=== PATIENT | female | born 1985 | race Caucasian/White ===

== ENCOUNTER 2016-07-21 03:14 | Inpatient (IN) | payer OTHER ==
[~2016-07-21] VITALS: Ht 165.1 cm; Wt 67.7 kg
[~2016-07-21 03:14] MED LIST: PRENTAB26 PO; SYN150 PO; SYN200 PO
[2016-07-25] MEDS ORDERED: LEVO100T PO (09:18)
[2016-07-25 09:21] VITALS: Ht 165.1 cm; Wt 67.7 kg
[2016-07-25] MEDS ORDERED: LACTATED RINGER'S 1000ML 500 ML IV PRN ×2 (09:40→22:47)
[2016-07-25] MEDS ORDERED: LACTATED RINGER'S 1000ML 1,000 ML IV PRN (09:40)
[2016-07-25] MEDS ORDERED: OXYTOCIN 30 UNITS/500ML NSS IV PRN (09:45)
--- NOTE | 2016-07-25 10:02 | HISTORY & PHYSICAL EXAMINATION ---
DATE OF ADMISSION: 07/25/2016 CHIEF COMPLAINT: Scheduled induction of labor. HISTORY OF PRESENT ILLNESS: The patient is a 31-year-old G2, P 1-0-0-1, at 40 weeks and 4 days of gestation, who is presenting today for induction of labor for postdates. She has no complaints, no contractions, leakage of fluid or vaginal bleeding. She reports good movements. She denies fever, chills, chest pain, shortness of breath, headache, nausea or vomiting. Her has been uncomplicated except history of hypothyroidism. PAST MEDICAL HISTORY: As above. PAST SURGICAL HISTORY: Lymph node biopsy of groin benign. MEDICATIONS: vitamins and Levoxyl 100 mcg daily. ALLERGIES: No known drug allergies. SOCIAL HISTORY: The patient is , lives with her and her daughter. She denies smoking, alcohol or drug use. GYNECOLOGIC HISTORY: The patient denies any history of STDs including Chlamydia, gonorrhea or herpes. OBSTETRICAL HISTORY: The patient delivered in 2011 full term, spontaneous vaginal delivery of a female . LABORATORIES: Her blood type is O positive, antibody screen negative. GC and chlamydia cultures were negative. Rubella titer positive, RPR nonreactive, hepatitis B surface antigen negative. H\T\H was 13/38, platelets 186. Her first trimester screen testing was negative. Second trimester MSAFP was negative. One-hour Glucola was 95 mg/dL. GBS was negative on 06/01/2016. PHYSICAL EXAMINATION: GENERAL: The patient is alert, oriented x3, not in acute distress. CARDIOVASCULAR: S1, S2, RRR. LUNGS: Clear to auscultation bilaterally. ABDOMEN: Soft, nontender, gravid. Gregg, 8 pounds. EXTREMITIES: Nontender, no edema. PELVIC: Cervix is 3-4 cm dilated, 50%, -3 with vertex presentation. heart rate 140s, category 1. [place], mild contractions every 2-5 minutes. VITAL SIGNS: Blood pressure was 116/59, respiration 20, pulse 83 and temperature 98.5. ASSESSMENT AND PLAN: The patient is a 31-year-old G2, P 1-0-0-1, at 40 weeks and 4 days of gestation, presenting for scheduled induction of labor at term. Vital signs stable, afebrile. No medical problems. GBS negative. heart rate reassuring. Plan is admit her, start IV fluids, IV Pitocin for augmentation and induction of labor. She understands the risks and benefits, and she agrees with the plan.
[2016-07-25 10:26] LABS: HEMATOCRIT 34.4 % (37-47); MEAN CELL VOLUME 92.2 fL (80-100); MEAN CORPUSCULAR HEMOGLOBIN 31.4 pg (25-34); MEAN PLATELET VOLUME 11.1 fL (7.4-10.4); PLATELET COUNT 121 K/uL (130-400); RED BLOOD COUNT 3.73 M/uL (4.2-5.4); WHITE BLOOD COUNT 4.72 K/uL (4.8-10.8)
[2016-07-25] MEDS: LACTATED RINGER'S 1000ML 1,000 ML IV SCH ×3 (10:40→22:18)
[2016-07-25] MEDS ORDERED: BUPIVACAINE 0.25% 30 ML VIAL ONE (21:38)
[2016-07-25] MEDS ORDERED: FENTANYL 2MCG/ML ROPIV 1.25MG/ML 100ML BAG EPI ONE (21:38)
[2016-07-25] MEDS ORDERED: EpHEDrine SULFATE INJ 50 MG/ML AMP ONE (21:38)
[2016-07-25] MEDS ORDERED: FENTANYL CITRATE INJ 50 MCG/1 ML 2 ML VIAL ONE (21:39)
[2016-07-25] MEDS ORDERED: NALOXONE HCL INJ 1 MG in SODIUM CHLORIDE 0.9% 1000ML 1,000 ML IV PRN (22:47)
[2016-07-25] MEDS ORDERED: ONDANSETRON INJ 2 MG/ML 2 ML VIAL IV PRN (23:00)
[2016-07-25] MEDS ORDERED: NALOXONE HCL INJ 0.4 MG/1 ML VIAL/CARP IV PRN (23:00)
[2016-07-25] MEDS ORDERED: DiphenhydrAMINE HCL 50 MG/ML VIAL IV PRN (23:00)
[2016-07-25] MEDS ORDERED: FENTANYL 2MCG/ML ROPIV 1.25MG/ML 100ML BAG EPI PRN (23:00)
[2016-07-25] MEDS ORDERED: NALBUPHINE HCL INJ 10 MG/ML AMP IV PRN (23:00)
[2016-07-25] MEDS ORDERED: EpHEDrine SULFATE INJ 50 MG/ML AMP IV PRN (23:00)
[2016-07-26] MEDS: LACTATED RINGER'S 1000ML 1,000 ML IV SCH (00:55)
[2016-07-26] MEDS ORDERED: CALCIUM CARBONATE 500 MG CHEWABLE PO STA (02:24)
[2016-07-26] MEDS ORDERED: NURSING VERBAL MED ORDER ONE (02:30)
[2016-07-26] MEDS ORDERED: LIDOCAINE HCL 2% JELLY 30 ML TUBE EXT ONE (06:29)
[2016-07-26] MEDS ORDERED: ACETAMINOPHEN 325 MG TAB PO PRN (07:30)
[2016-07-26] MEDS ORDERED: HYDROCORTISONE ACETATE 25 MG SUPP PR PRN (07:30)
[2016-07-26] MEDS ORDERED: ACETAMINOPHEN/CODEINE 300/30MG TAB PO PRN ×2 (07:30)
[2016-07-26] MEDS ORDERED: BENZOCAINE 20% AER SPR 82.5 GM CAN EXT PRN (07:30)
[2016-07-26] MEDS ORDERED: LANOLIN OINT EXT PRN ×2 (07:30)
[2016-07-26] MEDS ORDERED: SUPERCREAM 0.870 % 15GM JAR EXT PRN (07:30)
[2016-07-26] MEDS ORDERED: OXYTOCIN 30 UNITS/500ML NSS IV PRN (07:30)
[2016-07-26] MEDS ORDERED: OXYCODONE/ACETAMINOPHEN 5-325 TAB PO PRN (07:30)
--- NOTE | 2016-07-26 07:48 | DELIVERY SUMMARY ---
DATE OF OPERATION: 07/25/2016 The patient delivered a live infant male in occiput anterior presentation. There was a tight nuchal cord which was cut and reduced. Infant delivered with right hand compound presentation. was delivered and was placed on mother's abdomen. Placenta spontaneously delivered. Inspection of the perineum showed a first degree midline laceration as well as periurethral tear, both were repaired with 3-0 Vicryl. Inspection of the rectum post repair showed good sphincter tone. A red rubber catheter was placed in the bladder after the repair of the periurethral tear. Urine was clear. Estimated blood loss was 400 mL. All instruments were removed from the vagina and accounted for x2 including sponges and needles. The baby's weight and Apgars in the pediatric records. Mother and baby are doing well in recovery. I attest to the content of the Intraoperative Record and any orders documented therein. Any exceptions are noted below. MTDD
[2016-07-26] MEDS: DOCUSATE SODIUM 100 MG CAP PO SCH ×2 (08:19→20:16)
[2016-07-26] MEDS: PRENATAL VITAMIN TAB PO SCH (08:19)
[2016-07-26] MEDS: FERROUS SULFATE 325 MG TAB PO SCH (08:19)
[2016-07-26] MEDS: LEVOTHYROXINE 100 MCG TAB PO SCH ×2 (08:48→08:58)
--- NOTE | 2016-07-26 09:13 | Anesthesia Procedure Note ---
Anesthesia Epidural Removal Nt Date & Time Jul 26, 2016 at 09:12 Vital Signs Pain Intensity: 0.0 Notes Mental Status: alert / awake / arousable, participated in evaluation Nausea / Vomiting: adequately controlled Pain: adequately controlled Airway Patency, RR, SpO2: stable & adequate BP & HR: stable & adequate Hydration State: stable & adequate Neuraxial Anesthesia: was administered Anesthetic Complications: no major complications apparent, pt satisfied with anesthetic care Epidural: removed without complications, with tip intact
[2016-07-26 10:00] VITALS: BP 102/57; PULSE 65; TEMP 36.7
[2016-07-26] MEDS: IBUPROFEN 600 MG TAB PO PRN ×2 (15:18→22:42)
[2016-07-26 15:45] VITALS: BP 107/64; PULSE 60; TEMP 36.8
[2016-07-26 20:20] VITALS: BP 100/57; PULSE 59; TEMP 36.5
[2016-07-26 23:35] VITALS: BP 100/72; PULSE 70; TEMP 36.6
[2016-07-27 04:03] VITALS: BP 99/61; PULSE 64; TEMP 36.4
[2016-07-27 06:27] LABS: HEMATOCRIT 34.4 % (37-47)
[2016-07-27] MEDS: LEVOTHYROXINE 100 MCG TAB PO SCH (07:07)
[2016-07-27] MEDS: PRENATAL VITAMIN TAB PO SCH (08:22)
[2016-07-27] MEDS: FERROUS SULFATE 325 MG TAB PO SCH (08:22)
[2016-07-27] MEDS: DOCUSATE SODIUM 100 MG CAP PO SCH (08:22)
[2016-07-27 08:25] VITALS: BP 96/56; PULSE 66; TEMP 36.6
--- NOTE | 2016-07-27 09:23 | OB/GYN Progress Note ---
MANAGER OF TRANSPORTATION Progress Note Date of Service Jul 27, 2016. Subjective conversation w/ patient, physical exam Ambulation: ambulating normally Voiding: no voiding problems Passing Gas: Yes Diet Tolerance: Regular Diet Lochia: Moderate Feeding Type: Breast Feeding Review of Systems Constitutional: No chills, No fatigue, No fever, No problem reported, No sweats , No weakness, No weight loss Respiratory: No cough, No dyspnea at rest, No dyspnea on exertion, No hemoptysis, No problem reported, No shortness of breath, No sputum, No wheezing Cardiac: No PND, No chest pain, No claudication, No edema, No orthopnea, No palpitations, No problem reported Breast: No breast lump, No breast pain, No change in shape, No nipple discharge , No problem reported, No see HPI Abdomen: No GI bleeding, No constipation, No diarrhea, No nausea, No pain, No problem reported, No vomiting Female : No abnormal vaginal bleeding, No dysuria, No hematuria, No incontinence, No problem reported, No see HPI, No urinary frequency, No vaginal discharge VD day #1 pt doing well no complaints. wishes to go home today disch home with instructions Objective Vital Signs Date Time Temp Pulse Resp B/P Pulse Ox O2 Delivery O2 Flow Rate FiO2 07/27/16 08:25 36.6 66 16 96/56 07/27/16 04:03 36.4 64 18 99/61 Room Air 07/26/16 23:35 Room Air 07/26/16 23:35 36.6 70 20 100/72 Room Air 07/26/16 20:20 36.5 59 16 100/57 07/26/16 15:45 36.8 60 16 107/64 07/26/16 10:00 36.7 65 16 102/57 Laboratory Results Last 24 Hours Test 07/27/16 06:07 Hemoglobin 11.7 g/dL Hematocrit 34.4 %
[2016-07-27] MEDS ORDERED: MTR600X PO (09:24)
--- NOTE | 2016-07-27 09:25 | Discharge Instructions ---
Discharge Instructions Admission Reason for Admission: Induction Discharge Discharge Diagnosis / Problem: Discharge Goals Goal(s): Routine recovery after delivery Activity Recommendations Activity Limitations: as noted below Lifting Limitations: gradually increase as tolerated Exercise/Sports Limitations: until after follow-up appointment May Resume Sexual Activity: after follow-up appointment Driving or Machine Use: ACTIVITY RECOMMENDATIONS: * Gradual return to full activity over the next 2-3 weeks. * No lifting - nothing heavier than baby over the next 2-3 weeks. * Do not engage in vigorous exercise, sexual activity or sports until cleared by your physician. * Do not drive or operate any motorized equipment until cleared by your physician. * You may shower/bathe daily. BREAST CARE: If you are not breast feeding: * Wear a supportive bra 24 hours a day for one to two weeks. * Avoid stimulating your breasts and nipples as much as possible during the first few weeks after delivery. * When taking a shower, have the warm water hit your back, not breasts. * When your breasts feel full, apply ice packs. Usually three to four times a day helps ease the discomfort. * Take a mild pain medication (Tylenol/Motrin) when you are uncomfortable. If breast feeding: * Use breast milk to lubricate nipples. Lansinoh cream may be used for sore nipples. You do not need to remove cream prior to breast feeding. If using a different brand of cream, check the label for directions regarding removal of cream prior to nursing. * Wear a supportive bra. * If having problems with breasts or breast feeding, call a telecommunications consultant or your health care provider. EPISIOTOMY CARE: After delivery, if you have an episiotomy (stitches), the following steps will ease discomfort and aid healing. * For the first 24 hours after delivery, place ice packs next to your episiotomy to help reduce swelling. * After the first 24 hour-period, sitz baths, either portable or in the tub, are suggested. A shower with a shower arm sprayed over the episiotomy may be comforting. * Mis care should be done after each voiding and bowel movement. Squirt warm water from a plastic bottle over the perineum (region of the body between the anus and urinary opening) and pat dry. * Use Dermoplast to ease discomfort. Shake container. Pride directly over the episiotomy. * Place a Tucks on a clean sanitary pad next to your episiotomy. OVER THE COUNTER MEDICATION: * For discomfort or pain, you may use Acetaminophen (Tylenol), Ibuprofen (Advil ), or Naproxen (Aleve) following the package directions. * For constipation you may use Colace following the package directions. SPECIAL CARE INSTRUCTIONS: When you are discharged from the hospital, it is important for you to follow the instructions listed below: * During the first week at home, you should be able to care for yourself and your baby. In addition, the usual light household activities are encouraged. * Limit your activities to the way you feel. Do not try to clean the house or move furniture. Be sensible. * If you actively engage in sports and have done so up until the time of your delivery, you may resume these activities as soon as you feel able. This may take up to one month or even longer. Use good judgment. * Continue to take your vitamins for at least six weeks after the of your baby. * Your diet need not be limited unless you were on a special diet before your delivery. Breast-feeding mothers need around 2500 calories per day and at least 64-80 ounces of fluid per day (8 to 10 glasses). * You should eat foods from the four major food groups. Crash diets or fad diets are to be avoided. Eating lean meats, fresh fruits and vegetables, low-fat dairy products, high fiber foods and a regular exercise program, will help you get back to your pre- weight without putting your health at risk. * Constipation is sometimes a problem after delivery. Take a mild laxative as needed. If breast feeding, Milk of Magnesia is acceptable to use. You may use a suppository or Fleets enema if no episiotomy. * A daily shower or tub bath is suggested. Be sure to thoroughly and gently dry the perineum. * A bloody vaginal discharge will usually continue until around four weeks post . A small amount of bleeding may continue for as long as six weeks. Vaginal discharge changes from the bright red bleeding after delivery to pink then brownish and finally yellowish-pink before becoming white and disappearing. * Bleeding may increase with activity. Your first period may come in 4-8 weeks. If you are breast feeding, your period may be delayed even longer. * J.F. Villareal (sex) can begin whenever both you and your partner feel comfortable and do not have any form of genital infection. It is recommended that you wait until after your return appointment and discuss with your physician. If you have questions, please talk to your health care practitioner. A condom should be used to prevent infection and . * Foreplay, gentle intercourse and lubrication is very important the first several times to prevent pain. A water-based lubricant such as K-Y jelly or Astroglide may be used. * Tampons may be used six weeks after delivery. * Douching should be avoided for 6 weeks after delivery. * If you have RH negative blood and your baby is RH positive, you will receive RHOGAM by injection prior to discharge. The nurse will give you a card to keep with you that has the date and place that you received RHOGAM after delivery. * During your care, you had a Rubella screen done to check for the presence of rubella antibodies in your blood. If your test was negative, you will receive a Rubella vaccine prior to discharge. This vaccine may cause a fever, soreness at the injection site and flu-like symptoms. If these symptoms persist, notify your health care practitioner. is not advised for three months after a Rubella vaccine. There is a higher chance of having a baby with defects if conceived within three months of getting the vaccine. * If you were discharged 24 hours from delivery or before 48 hours: Visiting nurses will come to your home 48 hours after discharge to assess you and your baby. The visiting nurse will meet with you while you are in the hospital to arrange a time and get directions to your home. * Verbalizes understanding of car seat law as reviewed with patient nursing. * Car Seat hand-out given and reviewed with patient by nursing. * Shaken baby information reviewed with patient by nursing. Call you doctor if: * Heavy bleeding (saturating several pads an hour) or passing clots the size of your fist. * A fever >101 degrees F (38.3 degrees C) on two occasions four hours apart and/or chills. * Unusual pain in the pelvic or vaginal areas. * "Baby Blues" lasting longer than two weeks. If you have any questions or concerns, call your health care practitioner at . FOLLOW-UP VISIT: * Please call the office at to schedule a 6 week examination. It is important you keep this appointment. * It is important for you to make arrangements for either yearly or twice yearly check-ups thereafter. . Current Hospital Diet Patient's current hospital diet: Regular OB Diet Discharge Diet Recommended Diet: Regular Diet Pending Studies Studies pending at discharge: no Medical Emergencies . Who to Call and When: Medical Emergencies: If at any time you feel your situation is an emergency, please call 911 immediately. . Non-Emergent Contact Non-Emergency issues call your: Specialist Call Non-Emergent contact if: you have a fever, your pain is not controlled . . "Provider Documentation" section prepared by Luis Juárez. VTE Core Measure Inpt VTE Proph given/why not?: Treatment not indicated
[2016-07-27 12:56] VITALS: BP_DIAS 56; PULSE 66; TEMP 36.6
[2016-07-27] MEDS ORDERED: BISACODYL 5 MG TABEC PO SCH (20:00)
[2016-07-28] MEDS ORDERED: BISACODYL 10 MG SUPP PR PRN (07:00)
== END 2016-07-27 13:00 | disposition home or self-care (01) | DRG 775 ==
LOC: C.LD 07-25 08:25 → C.OBG 07-26 10:02
PROVIDERS: ADMIT Obstetrics & Gynecology; ATTEND Obstetrics & Gynecology
PROC: 10E0XZZ Delivery of Products of Conception, External Approach (ICD-10-PCS; principal; 2016-07-25)
PROC: B24BZZ4 Ultrasonography of Heart with Aorta, Transesophageal (ICD-10-PCS; 2016-07-25)
DX: O48.0 Post-term pregnancy (principal); O69.81X0 Labor and delivery complicated by cord around neck, without compression, not applicable or unspecified; Z37.0 Single live birth; Z3A.40 40 weeks gestation of pregnancy; O99.284 Endocrine, nutritional and metabolic diseases complicating childbirth; E03.9 Hypothyroidism, unspecified